=== PATIENT | female | born 1945 ===

== ENCOUNTER 2017-02-27 07:10 | Day surgery (SDC) | payer MEDICARE, OTHER ==
[2017-02-27] VITALS (9 sets, daily range): BP systolic 103–135; BP diastolic 55–87
[~2017-02-27] VITALS: Ht 171.4 cm; Wt 79.4 kg
--- NOTE | 2017-02-27 07:00 | Anethesia Preoperative Eval ---
Anesthesia Pre-op PMH/ROS General Date of Evaluation: Feb 27, 2017 Time of Evaluation: 06:59 Anesthesiologist: juan pablo ASA Score: ASA 3 Mallampati Score Class I : Soft palate, uvula, fauces, pillars visible Class II: Soft palate, uvula, fauces visible Class III: Soft palate, base of uvula visible Class IV: Only hard plate visible Mallampati Classification: Class II Surgeon: brittany Diagnosis: rectal cancer Surgical Procedure: colonoscopy Anesthesia History: none Social History: smoking - former moker Family History: no anesthesia problems Allergies: Coded Allergies: PROCHLORPERAZINE (Verified Allergy, Severe, 02/27/17) TETANUS AND DIPHTHERIA TOXOIDS (Verified Allergy, Unknown, 02/27/17) dont know the reaction Medications: see eMAR Past Medical History Cardiovascular: Reports: HTN Neurologic/Psychiatric: Reports: depression/anxiety Other: obesity PSxH Narrative: appendectomy, mastctomy, Anesthesia Pre-op Phys. Exam Physician Exam Last Vital Signs Date Time Temp Pulse Resp B/P (MAP) Pulse Ox O2 Delivery O2 Flow Rate FiO2 02/27/17 07:42 98.8 85 19 135/87 96 Room Air Constitutional: NAD Neurologic: CN 2-12 intact Cardiovascular: RRR Respiratory: CTA Gastrointestinal: S/NT/ND Airway Exam Mallampati Score: Class II MO: full Neck: supple TMD: 2fb ROM: full Teeth: intact Anesthesia Pre-op A/P Risk Assessment & Plan Assessment: asa3 Plan: mac Status Change Before Surgery: No Pre-Antibiotics Drug: ROSEMARIE Cross Feb 27, 2017 07:00
[2017-02-27] MEDS ORDERED: LISINOPRIL5 MG ORAL (07:47)
[2017-02-27] MEDS ORDERED: NORCO 10-325 T1 EACH ORAL (07:47)
[2017-02-27] MEDS ORDERED: ECOTRIN81 MG PO (07:47)
[2017-02-27] MEDS ORDERED: PAXIL30 MG ORAL (07:47)
--- NOTE | 2017-02-27 08:29 | Pre-Procedure Note/Attestation ---
Pre-Procedure Note/Attestation Complete Prior to Procedure Planned Procedure: not applicable Procedure Narrative: colonoscopy Indications for Procedure Pre-Operative Diagnosis: cancer Attestation I attest that I discussed the nature of the procedure; its benefits; risks and complications; and alternatives (and the risks and benefits of such alternatives ), prior to the procedure, with the patient (or the patient's legal manufacturer's representative). I attest that, if there was a reasonable possibility of needing a blood transfusion, the patient (or the patient's legal manufacturer's representative) was given the [facility] standardized written summary, pursuant to the [place] Blood Safety Act ([place] Health and Safety Code # 1645, as amended). I attest that I re-evaluated the patient just prior to the surgery and that there has been no change in the patient's H&P, except as documented below: CHATO MARKHAM Feb 27, 2017 08:29
--- NOTE | 2017-02-27 08:30 | Short Stay Surgery H&P ---
History of Present Illness History of Present Illness Chief Complaint cancer HPI Blanca Love is a 72 year old female who was admitted on for Rectal Cancer Patient History Allergies: Coded Allergies: PROCHLORPERAZINE (Verified Allergy, Severe, 02/27/17) TETANUS AND DIPHTHERIA TOXOIDS (Verified Allergy, Unknown, 02/27/17) dont know the reaction PAST MEDICAL HISTORY: (1) Breast cancer (2) Anal cancer (3) HTN (hypertension) Past Surgeries: Social History: Medication History Scheduled Aspirin (Ecotrin), 81 MG PO DAILY, (Reported) Lisinopril (Lisinopril*), 5 MG ORAL DAILY, (Reported) Paroxetine Hcl (Paxil), 30 MG ORAL DAILY, (Reported) Scheduled PRN Hydrocodone Bit/Acetaminophen 10-325* ([place] 10-325*), 1 TAB ORAL Q6H PRN for For Pain, (Reported) Review of Systems Cardiovascular: Reports: no symptoms Respiratory: Reports: no symptoms Skeletal: Reports: no symptoms Gastrointestinal: Reports: no symptoms Genitourinary: Reports: no symptoms Neurologic: Reports: no symptoms Endocrine: Reports: no symptoms Hematologic: Reports: no symptoms Physical Exam Vital Signs Last Vital Signs Date Time Temp Pulse Resp B/P (MAP) Pulse Ox O2 Delivery O2 Flow Rate FiO2 02/27/17 07:42 98.8 85 19 135/87 96 Room Air Skin: normal HENT: normal Heart: normal Lungs: normal Abdomen: normal Extremities: normal Plan Plan of Care colonoscopy Final Diagnosis: Attestation Are the patient's medical conditions optimized for surgery? Attestation Response: yes CHAOT MARKHAM Feb 27, 2017 08:30
[2017-02-27] MEDS ORDERED: Propofol 200mg/20ml IV ONE (08:40)
[2017-02-27] MEDS ORDERED: Lidocaine 1% MPF 10mg/ml 5ml ONE (08:40)
--- NOTE | 2017-02-27 09:39 | Endoscopy Procedure Note ---
Endoscopy Procedure Note Indication for Procedure: cancer Procedures Performed: colonoscopy Operative Findings/Diagnosis: same Specimen: yes Pt Tolerated Procedure Well: Yes Estimated Blood Loss: none Anesthesiologist: juan pablo Anesthesia: MAC Implant(s) used?: No 50 yrs or older w/o bx or poly: No 10yrs. F/U not recommended: Yes If not recommended, why?: Above average risk 10 yrs. F/U needed: Yes 18 years or older w/prev. colo: Yes <3yrs. since last colonoscopy: Yes Med reason:<3 yrs.: Incomplete Colonoscopy CHATO MARKHAM Feb 27, 2017 09:39
[2017-02-27] MEDS ORDERED: DiphenhydrAMINE 50mg/ml Inj IVP PRN (09:45)
[2017-02-27] MEDS ORDERED: Hydromorphone 0.5mg/0.5ml inj IVP PRN (09:45)
[2017-02-27] MEDS ORDERED: Atropine Inj 1mg/10ml Syr IV PRN (09:45)
[2017-02-27] MEDS ORDERED: Midazolam 2mg/2ml Inj IVP PRN (09:45)
--- NOTE | 2017-02-27 10:44 | Immediate Post-Op Evaluation ---
Immediate Post-Op Evalulation Immediate Post-Op Evalulation Procedure: colonoscopy Date of Evaluation: Feb 27, 2017 Time of Evaluation: 09:42 IV Fluids: 400ml 0.9ns Blood Products: none Estimated Blood Loss: negligible Blood Pressure Systolic: 120 Blood Pressure Diastolic: 55 Pulse Rate: 79 Respiratory Rate: 18 O2 Sat by Pulse Oximetry: 99 Temperature (Fahrenheit): 98.9 Pain Score (1-10): 0 Nausea: No Vomiting: No Complications none Patient Status: awake, reacts, patent Hydration Status: adequate Drug: ROSEMARIE Cross Feb 27, 2017 10:44
--- NOTE | 2017-02-27 10:45 | 48 Hour Post Anesthesia Eval ---
Post Anesthesia Evaluation Procedure: colonoscopy Date of Evaluation: Feb 27, 2017 Time of Evaluation: 10:44 Blood Pressure Systolic: 132 0: 56 Pulse Rate: 75 Respiratory Rate: 18 Temperature (Fahrenheit): 98.9 O2 Sat by Pulse Oximetry: 100 Airway: patent Nausea: No Vomiting: No Pain Intensity: 0 Hydration Status: adequate Cardiopulmonary Status: stable Mental Status/LOC: patient returned to baseline Post-Anesthesia Complications: none Follow-up care needed: N/A ROSEMARIE RUSSELL Feb 27, 2017 10:45
--- NOTE | 2017-02-27 17:00 | Procedure Note ---
DATE OF PROCEDURE: 02/27/2017 SURGEON: Demond Handy M.D. PROCEDURE: Colonoscopy with biopsy. ANESTHESIOLOGIST: Kezia Camacho M.D. INSTRUMENT: Pediatric colonoscope. INDICATION: Colorectal mass. REASON FOR PROCEDURE: The procedure, risks, benefits, and possible consequences, including hemorrhage, aspiration, perforation and infection, and alternative treatments, were explained to the patient/legal guardian by Dr. Demond Handy and the patient/legal guardian understood and accepted these risks. PROCEDURE: After informed consent was obtained and the patient was adequately sedated, first rectal exam was performed, which was positive for mass palpated on exam. Then, the scope was advanced from the rectum into the cecum documented by appendiceal orifice, ileocecal valve, and right upper quadrant palpation. Quality of prep was poor. We did extensive washing in this procedure. We spent a lot of time trying to wash and clean as best as we could. The patient had a few scattered diverticula in the right colon. There was one diminutive polyp at about 34 cm from the anal verge, which was removed with the cold biopsy forceps technique. 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 Then, there was another mass at about 9 cm from the anal verge, starting from 9 cm and expanding to about 12 to 13 cm from the anal verge, ulcerative. This mass also was already biopsied so we did not do a repeat biopsy of this mass. We did tattoo the most proximal portion of this tumor for possible surgical plans in the future. We also biopsied the area between the first tumor and the second tumor. As I mentioned, the distance was very short, I would say distance between these tumors maybe 6 to 7 cm. The patient tolerated the procedure well without any complication. SUMMARY FINDINGS: 1. Fair prep after extensive washing. 2. Scattered diverticulosis. 3. One colonic polyp removed, see above for detail. 4. Two masses, one at the anus and one about 9 cm from the dentate line, status post biopsy the area in between. 5. Internal hemorrhoids. RECOMMENDATIONS: Followup biopsy results and treat accordingly. I want to thank, Dr. Nazario Mclaughlin, for this kind referral. Demond Isis Handy DR: MARIZOL JOB#: [id number] CC: Nazario Mclaughlin M.D.; Fax#: [phone]
--- NOTE | 2017-02-28 03:30 | Procedure Note ---
DATE OF PROCEDURE: 02/27/2017 INCOMPLETE DICTATION ENDOSCOPIST: Demond Handy M.D. ANESTHESIOLOGIST: Kezia Camacho M.D. PROCEDURE PERFORMED: Colonoscopy with biopsy. INSTRUMENT USED: Pediatric Olympus colonoscope. INDICATION FOR PROCEDURE: Colorectal mass. The procedure, risks, benefits, and possible consequences, including hemorrhage, aspiration, perforation and infection, and alternative treatments, were explained to the patient/legal guardian by Dr. Demond Handy and the patient/legal guardian understood and accepted these risks. DESCRIPTION OF PROCEDURE: After informed consent was obtained, and the patient was adequately sedated, first rectal exam performed showed positive for . DICTATION ABRUPTLY ENDS Demond Handy M.D. DR: NEETA JOB#: [id number] CC:
--- NOTE | 2017-03-03 18:00 | Cardiology Report ---
APPROVED REPORT EKG Measurement Heart [id number] Normal sinus rhythm Possible Anterior infarct, age undetermined Abnormal ECG
== END 2017-02-27 10:30 | disposition home or self-care (01) ==
LOC: GAS 07:10
DX: K63.5 Polyp of colon (principal); K64.8 Other hemorrhoids; K57.30 Diverticulosis of large intestine without perforation or abscess without bleeding; I10 Essential (primary) hypertension; C44.520 Squamous cell carcinoma of anal skin; F41.9 Anxiety disorder, unspecified; E66.9 Obesity, unspecified; Z90.10 Acquired absence of unspecified breast and nipple; Z87.891 Personal history of nicotine dependence; Z88.8 Allergy status to other drugs, medicaments and biological substances; Z88.7 Allergy status to serum and vaccine; Z79.82 Long term (current) use of aspirin; Z79.899 Other long term (current) drug therapy; Z85.3 Personal history of malignant neoplasm of breast; F32.89 Other specified depressive episodes; Z68.27 Body mass index [BMI] 27.0-27.9, adult
CPT/HCPCS: 45380; 93005; J2704; 94003; 94150